=== PATIENT | female | born 1995 | race Two or more races ===

== ENCOUNTER 2017-01-26 20:45 | Emergency (ER) | payer SELFPAY ==
[~2017-01-26] VITALS: Ht 157.5 cm; Wt 41.3 kg
[2017-01-26 22:13] LABS: BASOPHILS % (AUTO) 1.2 % (0.0-2.0); EOSINOPHILS % (AUTO) 1.4 % (0.0-3.0); LYMPHOCYTES % (AUTO) 34.9 % (20.0-45.0); MEAN CORPUSCULAR HEMOGLOBIN 31.2 PG (27.0-31.0); MEAN CORPUSCULAR HGB CONC 33.4 G/DL (32.0-36.0); MEAN CORPUSCULAR VOLUME 93 FL (80-99); MEAN PLATELET VOLUME 7.7 FL (6.5-10.1); NEUTROPHILS % (AUTO) 56.6 % (45.0-75.0); PLATELET COUNT 251 K/UL (150-450); RED BLOOD COUNT 4.61 M/UL (4.20-5.40); RED CELL DISTRIBUTION WIDTH 11.9 % (11.6-14.8); WHITE BLOOD COUNT 7.2 K/UL (4.8-10.8)
[2017-01-26 22:16] LABS: APPEARANCE,URINE CLOUDY; KETONES,URINE 4+ (NEGATIVE); LEUKOCYTE ESTERASE ,URINE 2+ (NEGATIVE); NITRITE,URINE POSITIVE (NEGATIVE); PH,URINE 5 (4.5-8.0); PROTEIN,URINE 3+ (NEGATIVE); UROBILINOGEN,URINE NORMAL MG/DL (0.0-1.0)
[2017-01-26 22:22] LABS: RBC,URINE TNTC /HPF (0 - 2); SQUAMOUS EPITHELIAL CELL,UR FEW /LPF (NONE/OCC); WBC,URINE 0-2 /HPF (0 - 2)
[2017-01-26 22:23] LABS: BACTERIA,URINE MODERATE /HPF
[2017-01-26 22:42] LABS: ALANINE AMINOTRANSFERASE 9 U/L (3-33); ALBUMIN/GLOBULIN RATIO 1.5 (1.0-2.7); ANION GAP 19 (5-15); ASPARTATE AMINO TRANSFERASE 18 U/L (5-40); CALCIUM 9.4 mg/dL (8.6-10.2); CARBON DIOXIDE 24 mEQ/L (20-30); CHLORIDE 97 mEQ/L (98-107); CREATININE 0.6 mg/dL (0.5-0.9); GLOMERULAR FILTRATION RATE > 60 mL/min (>60); HEMOLYSIS 6; LIPASE 26 U/L (< 60); POTASSIUM 3.4 mEQ/L (3.4-4.9); SODIUM 140 mEQ/L (135-145); TOTAL PROTEIN 8.1 g/dL (6.6-8.7)
[2017-01-26] MEDS ORDERED: ZOFRAN4 MG ORAL (22:55)
[2017-01-26] MEDS ORDERED: KEFLEX500 MG ORAL (22:55)
--- NOTE | 2017-01-26 22:56 | Emergency Room Report ---
History of Present Illness General Chief Complaint: Vomiting Source: Patient Present Illness HPI Is a 21-year-old female with no past medical history patient presents with chief complaint of nausea vomiting. Onset for last 2 days. No diarrhea. Mutual weak. Denies any fever or chills. Denies any trauma. Said that she's not . No urinary complaint. Allergies: Coded Allergies: TRAMADOL (Verified Allergy, Unknown, 01/26/17) Patient History Past Medical History: none, see triage record, old chart reviewed Past Surgical History: none Pertinent Family History: none Social History: Denies: smoking Last Menstrual Period: 01/25/17 Now: No Immunizations: other Reviewed Nursing Documentation: PMH: Agreed, PSxH: Agreed Nursing Documentation-PMH Past Medical History: No History, Except For Hx Seizures: Yes Review of Systems Eye: Denies: blurred vision, eye pain ENT: Denies: ear pain, nose congestion, throat swelling Respiratory: Denies: cough, shortness of breath Cardiovascular: Denies: chest pain, palpitations Gastrointestinal: Reports: nausea, vomiting, Denies: abdominal pain, diarrhea Musculoskeletal: Denies: back pain, joint pain Skin: Denies: rash Neurological: Denies: headache, numbness Endocrine: Denies: increased thirst, increased urine Hematologic/Lymphatic: Denies: easy bruising All Other Systems: negative except mentioned in HPI Physical Exam Vital Signs Date Time Temp Pulse Resp B/P Pulse Ox O2 Delivery O2 Flow Rate FiO2 01/26/17 21:05 97.7 91 16 131/88 100 Room Air vitals normal Sp02 EP Interpretation: reviewed, normal General Appearance: well appearing, no apparent distress, alert Head: normocephalic, atraumatic Eyes: bilateral eye EOMI, bilateral eye PERRL ENT: hearing grossly normal, normal pharynx Neck: full range of motion, supple, no meningismus Respiratory: chest non-tender, lungs clear, normal breath sounds Cardiovascular #1: regular rate, rhythm, no murmur Gastrointestinal: normal bowel sounds, non tender, no mass, no organomegaly, no bruit, non-distended Musculoskeletal: back normal, gait/station normal, normal range of motion Psychiatric: mood/affect normal Skin: warm/dry Medical Decision Making Diagnostic Impression: Primary Impression: Vomiting Qualified Codes: R11.2 - Nausea with vomiting, unspecified Additional Impression: UTI (urinary tract infection) Qualified Codes: N30.00 - Acute cystitis without hematuria ER Course Patient with nausea vomiting. Most likely viral gastroenteritis. No evidence of obstruction. No evidence of acute abdomen. She is asymptomatic now. We'll put on antibiotics for UTI. No evidence of sepsis, pyelonephritis. Lab Results Impression labs unremarkable Last Vital Signs Date Time Temp Pulse Resp B/P Pulse Ox O2 Delivery O2 Flow Rate FiO2 01/26/17 21:05 97.7 91 16 131/88 100 Room Air Status: improved Disposition: HOME, SELF-CARE Condition: Stable Scripts Ondansetron (Zofran) 4 Mg Tablet 4 MG ORAL Q6H Y for Nausea & Vomiting, #30 TAB 0 Refills Prov: FEI PRESCOTT M.D. 01/26/17 Cephalexin* (KEFLEX*) 500 Mg Capsule 500 MG ORAL TID, #21 CAP 0 Refills Prov: FEI PRESCOTT M.D. 01/26/17 Referrals: NOT CHOSEN IPA/,REFERRING (PCP) Patient Instructions: Nausea and Vomiting, Adult Additional Instructions: Followup with your Dr. in 2-3 days. Return if symptom worsen. FEI PRESCOTT M.D. Jan 26, 2017 22:56
[2017-01-26 23:16] VITALS: BP 103/65
== END 2017-01-26 23:16 | disposition home or self-care (01) ==
LOC: EMR 22:29
DX: R11.2 Nausea with vomiting, unspecified (principal); N30.00 Acute cystitis without hematuria; Z88.8 Allergy status to other drugs, medicaments and biological substances
CPT/HCPCS: 36415; 80053; 81003; 81025; 83690; 85025; 87086; 96360; 96374; 99284; J2405

== ENCOUNTER 2017-02-01 04:25 | Emergency (ER) | payer SELFPAY ==
[~2017-02-01] VITALS: Ht 157.5 cm; Wt 41.3 kg
[~2017-02-01 04:25] MED LIST: KEFLEX500 MG ORAL; ZOFRAN4 MG ORAL
[2017-02-01] MEDS ORDERED: NKM (04:33)
--- NOTE | 2017-02-01 04:44 | Emergency Room Report ---
History of Present Illness General Chief Complaint: Vomiting Source: Patient Present Illness HPI Is a 21-year-old female with no past medical history. She get frequent vomiting. She presents with chief complaint of multiple episode vomiting tonight. Also with headache. Reason she came in because she noticed blood in it. Denies any fever or chills. Better now. No dysuria no frequency. No workup in the past. Been here for the same. Allergies: Coded Allergies: TRAMADOL (Verified Allergy, Unknown, 01/26/17) Patient History Past Medical History: see triage record, old chart reviewed Past Surgical History: none Pertinent Family History: none Social History: Denies: smoking Last Menstrual Period: last week Now: No Immunizations: other Reviewed Nursing Documentation: PMH: Agreed, PSxH: Agreed Nursing Documentation-PMH Hx Seizures: Yes Review of Systems Eye: Denies: blurred vision, eye pain ENT: Denies: ear pain, nose congestion, throat swelling Respiratory: Denies: cough, shortness of breath Cardiovascular: Denies: chest pain, palpitations Gastrointestinal: Reports: nausea, vomiting, Denies: abdominal pain, diarrhea Musculoskeletal: Denies: back pain, joint pain Skin: Denies: rash Neurological: Denies: headache, numbness Endocrine: Denies: increased thirst, increased urine Hematologic/Lymphatic: Denies: easy bruising All Other Systems: negative except mentioned in HPI Physical Exam Vital Signs Date Time Temp Pulse Resp B/P Pulse Ox O2 Delivery O2 Flow Rate FiO2 02/01/17 04:28 97.5 76 18 114/78 100 Room Air vitals normal. Sp02 EP Interpretation: reviewed, normal General Appearance: well appearing, no apparent distress, alert Head: normocephalic, atraumatic Eyes: bilateral eye EOMI, bilateral eye PERRL ENT: hearing grossly normal, normal pharynx Neck: full range of motion, supple, no meningismus Respiratory: chest non-tender, lungs clear, normal breath sounds Cardiovascular #1: regular rate, rhythm, no murmur Gastrointestinal: normal bowel sounds, non tender, no mass, no organomegaly, no bruit, non-distended Musculoskeletal: back normal, gait/station normal, normal range of motion Neurologic: alert, oriented x3 Psychiatric: depressed affect Skin: warm/dry Medical Decision Making Diagnostic Impression: Primary Impression: Vomiting Qualified Codes: R11.2 - Nausea with vomiting, unspecified ER Course Patient presents with recurrent abdominal pain and vomiting. She did have some headache associated with this. Questionable migraine associated Karina pain and vomiting. No evidence of obstruction. No evidence of major bleeding. She denied depression, eating disorder, other psychological issue. May need a GI workup. Lab Results Impression labs normal Last Vital Signs Date Time Temp Pulse Resp B/P Pulse Ox O2 Delivery O2 Flow Rate FiO2 02/01/17 04:28 97.5 76 18 114/78 100 Room Air Status: improved Disposition: HOME, SELF-CARE Condition: Stable Patient Instructions: Nausea and Vomiting, Adult Additional Instructions: followup with your Dr. within 7 days. You may need referral to see a GI specialist for further workup. Return if worse. FEI PRESCOTT M.D. Feb 01, 2017 04:44
[2017-02-01 05:00] VITALS: BP 104/68
[2017-02-01 05:52] LABS: BASOPHILS % (AUTO) 0.9 % (0.0-2.0); EOSINOPHILS % (AUTO) 1.5 % (0.0-3.0); MEAN CORPUSCULAR HEMOGLOBIN 31.3 PG (27.0-31.0); MEAN CORPUSCULAR VOLUME 92 FL (80-99); NEUTROPHILS % (AUTO) 46.6 % (45.0-75.0); PLATELET COUNT 265 K/UL (150-450); RED CELL DISTRIBUTION WIDTH 11.5 % (11.6-14.8); WHITE BLOOD COUNT 6.4 K/UL (4.8-10.8)
[2017-02-01 05:56] LABS: APPEARANCE,URINE CLEAR; KETONES,URINE NEGATIVE (NEGATIVE); LEUKOCYTE ESTERASE ,URINE NEGATIVE (NEGATIVE); NITRITE,URINE NEGATIVE (NEGATIVE); PH,URINE 7 (4.5-8.0); PROTEIN,URINE NEGATIVE (NEGATIVE); UROBILINOGEN,URINE NORMAL MG/DL (0.0-1.0)
[2017-02-01 05:57] LABS: RBC,URINE 0-2 /HPF (0 - 2); SQUAMOUS EPITHELIAL CELL,UR FEW /LPF (NONE/OCC); WBC,URINE 0 /HPF (0 - 2)
[2017-02-01 06:10] LABS: ANION GAP 17 (5-15); CALCIUM 9.6 mg/dL (8.6-10.2); CARBON DIOXIDE 24 mEQ/L (20-30); CHLORIDE 100 mEQ/L (98-107); CREATININE 0.5 mg/dL (0.5-0.9); GLOMERULAR FILTRATION RATE > 60 mL/min (>60); HEMOLYSIS 22; POTASSIUM 3.8 mEQ/L (3.4-4.9); SODIUM 141 mEQ/L (135-145)
[2017-02-01 06:16] VITALS: BP 103/67
[2017-02-01 06:27] VITALS: BP 103/67
== END 2017-02-01 06:29 | disposition home or self-care (01) ==
LOC: EMR 04:45
DX: R11.2 Nausea with vomiting, unspecified (principal); R51 Headache
CPT/HCPCS: 36415; 80048; 81001; 81025; 85025; 96374; 99284; J2405

== ENCOUNTER 2017-06-29 22:44 | Emergency (ER) | payer OTHER ==
[~2017-06-29] VITALS: Ht 157.5 cm; Wt 42.6 kg
[~2017-06-29 22:44] MED LIST changes: +NKM
[2017-06-29 23:36] VITALS: BP 117/75
--- NOTE | 2017-06-30 | Emergency Room Report ---
History of Present Illness General Chief Complaint: Female Urogenital Problems Source: Patient, Medical Record Present Illness HPI Patient present with complaints of evidence of blood in her urine Today the patient had noticed a small amount of blood It appears to have improved Patient has some associated discomfort in the suprapubic area this was followed by Nausea Similar episode happened again today And with this the patient presents to the ER Denies any fevers or chills denies any flank pain patient is sexually active Reports that she had a recent menstrual cycle Allergies: Coded Allergies: TRAMADOL (Verified Allergy, Unknown, 01/26/17) Patient History Past Medical History: see triage record Pertinent Family History: none Last Menstrual Period: 06/19/17 Now: No : 0 Para: 0 Reviewed Nursing Documentation: PMH: Agreed, PSxH: Agreed Nursing Documentation-PMH Hx Seizures: Yes Review of Systems All Other Systems: negative except mentioned in HPI Physical Exam Vital Signs Date Time Temp Pulse Resp B/P Pulse Ox O2 Delivery O2 Flow Rate FiO2 06/29/17 23:28 98.2 79 14 117/75 100 Room Air Sp02 EP Interpretation: reviewed, normal General Appearance: well appearing, no apparent distress Head: normocephalic, atraumatic Eyes: bilateral eye EOMI, bilateral eye PERRL ENT: hearing grossly normal, normal pharynx, TMs + canals normal, uvula midline Neck: full range of motion, supple, no meningismus, no bony tend Respiratory: lungs clear, normal breath sounds, no rhonchi, no respiratory distress, no retraction, no accessory muscle use Cardiovascular #1: normal peripheral pulses, regular rate, rhythm, no edema, no gallop, no JVD, no murmur Gastrointestinal: normal bowel sounds, non tender, soft, no mass, no organomegaly, non-distended, no guarding, no hernia, no pulsatile mass, no rebound Genitourinary: no CVA tenderness Musculoskeletal: normal inspection Neurologic: oriented x3, responsive, machine pecan picker III-XII nml as tested, motor strength/ tone normal, sensory intact Psychiatric: mood/affect normal Skin: normal color, no rash, warm/dry, palpation normal Lymphatic: normal inspection, no adenopathy Medical Decision Making Diagnostic Impression: Primary Impression: UTI (urinary tract infection) ER Course With the patient's history and examination, multiple differentials considered, including but not limited to , ectopic , ovarian torsion, gastritis, cholecystitis, pancreatitis, appendicitis Patient however has a fairly benign abdominal examination urine sample does show small amount of infection patient will be treated for possible hemorrhagic cystitis And return with any changes Labs Test 06/29/17 23:50 Urine Color Pale yellow Urine Appearance Clear Urine pH 6 (4.5-8.0) Urine Specific [place] 1.010 (1.005-1.035) Urine Protein 1+ (NEGATIVE) Urine Glucose (UA) Negative (NEGATIVE) Urine Ketones 1+ (NEGATIVE) Urine Occult Blood 1+ (NEGATIVE) Urine Nitrite Negative (NEGATIVE) Urine Bilirubin Negative (NEGATIVE) Urine Urobilinogen Normal MG/DL (0.0-1.0) Urine Leukocyte Esterase 2+ (NEGATIVE) Urine RBC 2-4 /HPF (0 - 2) Urine WBC 2-4 /HPF (0 - 2) Urine Squamous Epithelial Cells Few /LPF (NONE/OCC) Urine Bacteria Few /HPF (NONE) Urine HCG, Qualitative Negative Last Vital Signs Date Time Temp Pulse Resp B/P Pulse Ox O2 Delivery O2 Flow Rate FiO2 06/29/17 23:36 98.2 79 14 117/75 100 Room Air Status: improved Disposition: HOME, SELF-CARE Condition: Stable Scripts Nitrofurantoin Monohyd/M-Cryst* (MACROBID 100 MG*) 100 Mg Capsule 100 MG ORAL EVERY 12 HOURS for 5 Days, CAP Prov: RIAN YEPEZ D.O. 06/30/17 Additional Instructions: Patient is provided with the discharge instructions notified to follow up with primary doctor in the next 2-3 days otherwise return to the er with any worsening symptoms. Please note that this report is being documented using [employer] technology. This can lead to erroneous entry secondary to incorrect interpretation by the dictating instrument. RIAN YEPEZ D.O. Jun 30, 2017 00:00
[2017-06-30 00:11] LABS: APPEARANCE,URINE CLEAR; KETONES,URINE 1+ (NEGATIVE); LEUKOCYTE ESTERASE ,URINE 2+ (NEGATIVE); NITRITE,URINE NEGATIVE (NEGATIVE); PH,URINE 6 (4.5-8.0); PROTEIN,URINE 1+ (NEGATIVE); UROBILINOGEN,URINE NORMAL MG/DL (0.0-1.0)
[2017-06-30 00:30] LABS: BACTERIA,URINE FEW /HPF; SQUAMOUS EPITHELIAL CELL,UR FEW /LPF (NONE/OCC)
[2017-06-30] MEDS ORDERED: NITROFURANTOIN100 M2 ORAL (00:44)
[2017-06-30 01:30] VITALS: BP 1/1
== END 2017-06-30 00:53 | disposition home or self-care (01) ==
LOC: EMR 23:12
DX: N39.0 Urinary tract infection, site not specified (principal); Z88.6 Allergy status to analgesic agent
CPT/HCPCS: 81003; 81025; 99283

== ENCOUNTER 2017-10-31 15:13 | Emergency (ER) | payer OTHER ==
[~2017-10-31] VITALS: Ht 157.5 cm; Wt 44.0 kg
[~2017-10-31 15:13] MED LIST changes: +NITROFURANTOIN100 M2 ORAL
[2017-10-31] MEDS ORDERED: NKM (15:36)
[2017-10-31 16:21] LABS: APPEARANCE,URINE CLEAR; KETONES,URINE NEGATIVE (NEGATIVE); LEUKOCYTE ESTERASE ,URINE 1+ (NEGATIVE); NITRITE,URINE NEGATIVE (NEGATIVE); PH,URINE 5 (4.5-8.0); PROTEIN,URINE NEGATIVE (NEGATIVE); UROBILINOGEN,URINE NORMAL MG/DL (0.0-1.0)
[2017-10-31] MEDS ORDERED: Cyclobenzaprine 10mg Tab ORAL ONE (16:30)
[2017-10-31] MEDS ORDERED: Ketorolac 30mg Inj IM ONE (16:30)
[2017-10-31 16:36] LABS: BACTERIA,URINE FEW /HPF; RBC,URINE 0-2 /HPF (0 - 2); SQUAMOUS EPITHELIAL CELL,UR FEW /LPF (NONE/OCC)
[2017-10-31] MEDS ORDERED: IBUPROFEN600 MG ORAL (16:40)
[2017-10-31] MEDS ORDERED: ROBAXIN-750750 MG PO (16:40)
[2017-10-31 16:49] VITALS: BP 106/74
--- NOTE | 2017-10-31 21:27 | Emergency Room Report ---
History of Present Illness General Chief Complaint: Lower Back Pain or Injury Source: Patient Present Illness HPI The patient is a 22-year-old female presenting for back pain. 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 She then felt pain at the mid lower back. She continued to work. She states that the pain has now progressed and is an 8/10 dull ache. Does not radiate. Worse with movement. She has not tried any medications. She denies previous injury to the back. She denies any other symptoms including nausea, vomiting, fever, chills, abdominal pain, dysuria, numbness or tingling, incontinence Allergies: Coded Allergies: TRAMADOL (Verified Allergy, Unknown, 01/26/17) Patient History Past Medical History: see triage record Pertinent Family History: none Now: No Reviewed Nursing Documentation: PMH: Agreed, PSxH: Agreed Nursing Documentation-PMH Past Medical History: No History, Except For Hx Seizures: Yes Review of Systems All Other Systems: negative except mentioned in HPI Physical Exam Vital Signs Date Time Temp Pulse Resp B/P (MAP) Pulse Ox O2 Delivery O2 Flow Rate FiO2 10/31/17 15:32 97.7 86 17 112/79 98 Room Air Sp02 EP Interpretation: reviewed, normal General Appearance: no apparent distress, alert, GCS 15, non-toxic Head: normocephalic, atraumatic Eyes: bilateral eye normal inspection, bilateral eye PERRL ENT: hearing grossly normal, normal pharynx, no angioedema, normal voice Musculoskeletal: normal inspection, normal range of motion, tender - bilat lumbar paraspinal muscles Neurologic: alert, oriented x3, responsive, motor strength/tone normal, sensory intact, speech normal Psychiatric: judgement/insight normal, memory normal, mood/affect normal, no suicidal/homicidal ideation Skin: normal color, no rash, warm/dry, well hydrated Medical Decision Making PA Attestation Dr. De Paz is my supervising physician. Patient management was discussed with my supervising physician Diagnostic Impression: Primary Impression: Muscle strain ER Course The patient is a 22-year-old female presenting for back pain. Ddx considered include but not limited to lumbar strain, degenerative disease, UTI, epidural abscess, cauda equina syndrome, chronic pain PE: NAD There is tenderness to palpation over bilateral lumbar paraspinal muscles. No midline tenderness or step-offs. Active range of motion is intact Normal gait Urinalysis unremarkable The patient will be discharged home with prescription for Motrin and Robaxin. She will followup with her primary doctor and workers compensation. ER precautions are given Laboratory Tests Test 10/31/17 16:00 Urine Color Pale yellow Urine Appearance Clear Urine pH 5 (4.5-8.0) Urine Specific [place] 1.015 (1.005-1.035) Urine Protein Negative (NEGATIVE) Urine Glucose (UA) Negative (NEGATIVE) Urine Ketones Negative (NEGATIVE) Urine Occult Blood 4+ (NEGATIVE) H Urine Nitrite Negative (NEGATIVE) Urine Bilirubin Negative (NEGATIVE) Urine Urobilinogen Normal MG/DL (0.0-1.0) Urine Leukocyte Esterase 1+ (NEGATIVE) H Urine RBC 0-2 /HPF (0 - 2) Urine WBC 2-4 /HPF (0 - 2) Urine Squamous Epithelial Cells Few /LPF (NONE/OCC) Urine Bacteria Few /HPF (NONE) Urine HCG, Qualitative Negative Lab Results Impression unremarkable Last Vital Signs Date Time Temp Pulse Resp B/P (MAP) Pulse Ox O2 Delivery O2 Flow Rate FiO2 10/31/17 16:49 98.2 72 17 106/74 99 Room Air Status: improved Disposition: HOME, SELF-CARE Condition: Improved Scripts Methocarbamol* (ROBAXIN-750*) 750 Mg Tablet 750 MG PO TID, #21 TAB 0 Refills Prov: JOSH GOSS P.A. 10/31/17 Ibuprofen* (MOTRIN*) 600 Mg Tablet 600 MG ORAL Q8H Y for For Pain, #30 TAB 0 Refills Prov: JOSH GOSS P.A. 10/31/17 Patient Instructions: Back Pain, Adult, Muscle Strain Additional Instructions: I discussed my findings with the patient. All questions and concerns have been answered. Treatment and medication compliance have been addressed. I advised the patient that they need to follow up with PMD in 3-5 days. Return to ED if symptoms worsen, new symptoms arise, or if needed for any reason. Patient verbalized understanding of discharge instructions. JOSH GOSS Oct 31, 2017 21:27
[2017-11-08] MEDS ORDERED: METRONIDAZOLE500 MG ORAL (17:34)
== END 2017-10-31 16:50 | disposition home or self-care (01) ==
LOC: EMR 15:40
DX: S39.012A Strain of muscle, fascia and tendon of lower back, initial encounter (principal); Z88.6 Allergy status to analgesic agent; X50.9XXA Other and unspecified overexertion or strenuous movements or postures, initial encounter; Y92.512 Supermarket, store or market as the place of occurrence of the external cause; Y99.0 Civilian activity done for income or pay
CPT/HCPCS: 81003; 81025; 96372; 99283; J1885

== ENCOUNTER → 2017-11-08 | Emergency (ER) | payer OTHER ==
[~2017-11-08] VITALS: Ht 157.5 cm; Wt 44.9 kg
[~2017-11-08] MED LIST changes: +IBUPROFEN600 MG ORAL; +METRONIDAZOLE500 MG ORAL; +ROBAXIN-750750 MG PO
[2017-11-08 16:30] VITALS: BP 107/69
[2017-11-08 17:16] LABS: APPEARANCE,URINE CLEAR; BILIRUBIN, URINE NEGATIVE (NEGATIVE); COLOR,URINE PALE YELLOW; GLUCOSE, URINE (UA) NEGATIVE (NEGATIVE); KETONES,URINE NEGATIVE (NEGATIVE); LEUKOCYTE ESTERASE ,URINE 2+ (NEGATIVE); NITRITE,URINE NEGATIVE (NEGATIVE); PH,URINE 5 (4.5-8.0); PROTEIN,URINE NEGATIVE (NEGATIVE); UROBILINOGEN,URINE NORMAL MG/DL (0.0-1.0)
--- NOTE | 2017-11-08 22:03 | Emergency Room Report ---
History of Present Illness General Chief Complaint: Female Urogenital Problems Source: Patient, Medical Record Present Illness HPI The patient is a 22-year-old female presenting for vaginal itching and swelling for the past 3 days. She states that this began after intercourse. She denies any pain. She denies any vaginal discharge, dysuria, hematuria, back pain, fever, chills Allergies: Coded Allergies: TRAMADOL (Verified Allergy, Unknown, 01/26/17) Patient History Past Medical History: see triage record Pertinent Family History: none Last Menstrual Period: 10/30/17 Reviewed Nursing Documentation: PMH: Agreed, PSxH: Agreed Nursing Documentation-PMH Past Medical History: No History, Except For Hx Seizures: Yes Review of Systems All Other Systems: negative except mentioned in HPI Physical Exam Vital Signs Date Time Temp Pulse Resp B/P (MAP) Pulse Ox O2 Delivery O2 Flow Rate FiO2 11/08/17 16:30 97.9 84 18 107/69 98 Room Air Sp02 EP Interpretation: reviewed, normal General Appearance: no apparent distress, alert, GCS 15, non-toxic Head: normocephalic, atraumatic Eyes: bilateral eye normal inspection, bilateral eye PERRL ENT: hearing grossly normal, normal pharynx, no angioedema, normal voice Gastrointestinal: normal bowel sounds, non tender, soft, non-distended, no guarding, no rebound Genitourinary: normal inspection, no CVA tenderness Neurologic: alert, oriented x3, responsive, motor strength/tone normal, sensory intact, speech normal Psychiatric: judgement/insight normal, memory normal, mood/affect normal, no suicidal/homicidal ideation Skin: normal color, no rash, warm/dry, well hydrated Medical Decision Making PA Attestation Dr. Vang is my supervising physician. Patient management was discussed with my supervising physician Diagnostic Impression: Primary Impression: Vaginitis Qualified Codes: N76.0 - Acute vaginitis ER Course The patient is a 22-year-old female presenting for vaginal itching and swelling for the past 3 days. Differential diagnosis considered but not limited to: UTI, vaginitis, pyelonephritis, pyelonephrosis, PID, ectopic PE: Vitals WNL. NAD. Abdomen: Normal appearance. Non distended. No ecchymosis. Normal BS. Non TTP. No McBurney point tenderness. No guarding. No CVA tenderness UA unremarkable. Neg preg Pt will be AK'ed home with prescription for flagyl and will FU with PMD. ER precautions given Laboratory Tests Test 11/08/17 16:34 Urine Color Pale yellow Urine Appearance Clear Urine pH 5 (4.5-8.0) Urine Specific [place] 1.010 (1.005-1.035) Urine Protein Negative (NEGATIVE) Urine Glucose (UA) Negative (NEGATIVE) Urine Ketones Negative (NEGATIVE) Urine Occult Blood Negative (NEGATIVE) Urine Nitrite Negative (NEGATIVE) Urine Bilirubin Negative (NEGATIVE) Urine Urobilinogen Normal MG/DL (0.0-1.0) Urine Leukocyte Esterase 2+ (NEGATIVE) H Urine RBC 0-2 /HPF (0 - 2) Urine WBC 2-4 /HPF (0 - 2) Urine Squamous Epithelial Cells Few /LPF (NONE/OCC) Urine Bacteria Few /HPF (NONE) Urine HCG, Qualitative Negative Lab Results Impression No signs of infection Last Vital Signs Date Time Temp Pulse Resp B/P (MAP) Pulse Ox O2 Delivery O2 Flow Rate FiO2 11/08/17 16:30 97.9 84 18 107/69 98 Room Air Status: improved Disposition: HOME, SELF-CARE Condition: Improved Scripts Metronidazole* (FLAGYL*) 500 Mg Tablet 500 MG ORAL BID, #14 TAB 0 Refills Prov: JOSH GOSS 11/08/17 Patient Instructions: Vaginitis Additional Instructions: I discussed my findings with the patient. All questions and concerns have been answered. Treatment and medication compliance have been addressed. I advised the patient that they need to follow up with PMD in 3-5 days. Return to ED if symptoms worsen, new symptoms arise, or if needed for any reason. Patient verbalized understanding of discharge instructions. JOSH GOSS Nov 08, 2017 22:03
== END | disposition home or self-care (01) ==
LOC: EMR 17:20
DX: N76.0 Acute vaginitis (principal); R30.9 Painful micturition, unspecified
CPT/HCPCS: 81003; 81025; 99283

== ENCOUNTER 2017-12-26 15:39 | Emergency (ER) | payer OTHER ==
[~2017-12-26] VITALS: Ht 157.5 cm; Wt 45.4 kg
[2017-12-26 16:02] VITALS: BP 107/73
--- NOTE | 2017-12-26 16:08 | Emergency Room Report ---
History of Present Illness General Chief Complaint: Skin Rash/Abscess Source: Patient, Medical Record Present Illness HPI 22YOF with c/o rash to outer right thigh States woke up with rash 2 days ago, ?doesnt know if something bit her Didnt see insect Saw PMD this morning, got Rx prescribed, not sure which Abx, didnt take yet Came to ED now becase "doctor told me to go to ER if it got bigger." Denies fever/chills No DM or previous abscess history Doesnt shave to area Allergies: Coded Allergies: TRAMADOL (Verified Allergy, Unknown, 01/26/17) Patient History Past Medical History: none Past Surgical History: none Pertinent Family History: none Social History: Denies: smoking, alcohol use, drug use Last Menstrual Period: 12/02/17 Now: No Immunizations: UTD Reviewed Nursing Documentation: PMH: Agreed, PSxH: Agreed Nursing Documentation-PMH Past Medical History: No History, Except For Hx Seizures: Yes Review of Systems All Other Systems: negative except mentioned in HPI Physical Exam Vital Signs Date Time Temp Pulse Resp B/P (MAP) Pulse Ox O2 Delivery O2 Flow Rate FiO2 12/26/17 15:49 97.4 68 18 107/73 96 Room Air 97.3 Sp02 EP Interpretation: reviewed, normal General Appearance: normal inspection, well appearing, no apparent distress, alert, GCS 15, non-toxic Head: normocephalic, atraumatic Eyes: bilateral eye PERRL, bilateral eye EOMI ENT: normal ENT inspection, hearing grossly normal, normal pharynx, no angioedema, normal voice, TMs + canals normal, uvula midline, moist mucus membranes Neck: normal inspection, full range of motion, supple, thyroid normal, no meningismus, no bony tend Respiratory: normal inspection, lungs clear, normal breath sounds, no rhonchi, no respiratory distress, no retraction, no accessory muscle use, no wheezing, speaking full sentences Cardiovascular #1: regular rate, rhythm, no edema, no JVD, normal capillary refill Gastrointestinal: normal inspection, normal bowel sounds, non tender, soft, no mass, no peritonitis, non-distended, no guarding, no hernia, no pulsatile mass Genitourinary: no CVA tenderness Musculoskeletal: normal inspection, back normal, normal range of motion, no calf tenderness, pelvis stable, Xander's Sign negative Neurologic: normal inspection, alert, oriented x3, responsive, medical technologist blood bank III-XII nml as tested, motor strength/tone normal, cerebellar normal, normal gait, speech normal Psychiatric: normal inspection, judgement/insight normal, mood/affect normal, no suicidal/homicidal ideation, no delusions Skin: other - Right thigh: 5cm circular area of erythema. No fluctuance or induration. No definitive abscess. Lymphatic: normal inspection, no adenopathy Medical Decision Making Diagnostic Impression: Primary Impression: Rash and other nonspecific skin eruption Additional Impression: Cellulitis Qualified Codes: L03.90 - Cellulitis, unspecified ER Course Right thigh cellulitis Patient already has Rx Advised ICE for symptom relief Take ALL Abx Return for worsening, abscess development ER course: Patient has remained stable during ED stay. Disposition: Patient is to be discharged to home. Patient is instructed to follow up with their primary care doctor within 5 days. Strict return precautions discussed with patient such as fever, chills, worsening/severe pain, nausea, vomiting, which may indicate severe illness. Patient verbalizes understanding and agrees with plan. Please note that this Emergency Department Report was dictated using [employer] visual secretary technology software, occasionally this can lead to erroneous entry secondary to interpretation by the dictation equipment Last Vital Signs Date Time Temp Pulse Resp B/P (MAP) Pulse Ox O2 Delivery O2 Flow Rate FiO2 12/26/17 16:02 97.3 69 18 107/73 96 Room Air 97.3 Status: improved Disposition: HOME, SELF-CARE Condition: Improved Patient Instructions: Cellulitis, [id number] Additional Instructions: - Take antibiotics for cellulitis as prescribed - Apply ice to decrease pain/swelling - Return to ER for worsening pain/swelling if no improvement in 5-7 days PAUL DIETRICH M.D. Dec 26, 2017 16:08
[2017-12-26 16:11] VITALS: BP 107/73
== END 2017-12-26 16:15 | disposition home or self-care (01) ==
LOC: EMR 16:00
DX: L03.115 Cellulitis of right lower limb (principal); R21 Rash and other nonspecific skin eruption; Z88.8 Allergy status to other drugs, medicaments and biological substances
CPT/HCPCS: 99282

== ENCOUNTER 2018-05-10 21:57 | Emergency (ER) | payer OTHER ==
[~2018-05-10] VITALS: Ht 157.5 cm; Wt 44.9 kg
[2018-05-10 22:25] VITALS: BP 115/72
[2018-05-10] MEDS ORDERED: Acetaminophen 500mg (ES) tab ORAL ONE (22:30)
[2018-05-10] MEDS ORDERED: TYLENOL EXTRA500 MG ORAL (23:21)
[2018-05-10 23:50] VITALS: BP 115/72
--- NOTE | 2018-05-11 00:52 | Emergency Room Report ---
History of Present Illness General Chief Complaint: Pain Source: Patient Present Illness HPI 22-year-old female presents ED complaining of right foot pain. States that yesterday afternoon she rolled her foot while walking. Notes pain to her foot. 8 out of 10, throbbing, nonradiating. Denies any ankle pain. Denies any other injury. Notes pain while walking. No other aggravating or relieving factors. Denies any other associated symptoms Allergies: Coded Allergies: TRAMADOL (Verified Allergy, Unknown, 01/26/17) Patient History Past Medical History: seizures Past Surgical History: none Pertinent Family History: none Social History: Denies: smoking, alcohol use, drug use Last Menstrual Period: 04/10/18 Now: No : 0 Para: 0 Immunizations: UTD Reviewed Nursing Documentation: PMH: Agreed; PSxH: Agreed Nursing Documentation-PMH Past Medical History: No History, Except For Hx Seizures: Yes Review of Systems All Other Systems: negative except mentioned in HPI Physical Exam Vital Signs Date Time Temp Pulse Resp B/P (MAP) Pulse Ox O2 Delivery O2 Flow Rate FiO2 05/10/18 22:01 98.3 89 16 112/77 100 Room Air 98.2 Sp02 EP Interpretation: reviewed, normal General Appearance: no apparent distress, alert, GCS 15, non-toxic Head: normocephalic Eyes: bilateral eye normal inspection, bilateral eye PERRL ENT: normal ENT inspection Neck: normal inspection Respiratory: normal inspection Cardiovascular #1: normal inspection Gastrointestinal: normal inspection Rectal: deferred Genitourinary: no CVA tenderness Musculoskeletal: tender - R foot Neurologic: alert, oriented x3, responsive, motor strength/tone normal, sensory intact, speech normal Psychiatric: normal inspection Skin: normal inspection Lymphatic: normal inspection Procedures Splinting Splinting : Consent: Verbal Pre-Made Type: NUBIA wrap - R foot Pre-Proc Neuro Vasc Exam: normal Post-Proc Neuro Vasc Exam: normal Patient Tolerated: Well Complications: None Medical Decision Making Diagnostic Impression: Primary Impression: Foot sprain Qualified Codes: S93.601A - Unspecified sprain of right foot, initial encounter ER Course Hospital Course 22-year-old F presents to ED complaining of R foot pain s/p rolling her foot Differential diagnoses include: Fracture, dislocation, sprain, contusion Clinical course Patient placed on stretcher. After initial history and physical, I ordered pain medications and Xrays of R foot Xrays prelim read shows no acute fracture/dislocation. placed in nubia wrap, given crutches Diagnosis - foot sprain Stable and discharged to home with prescription for Tylenol. apply ice, keep elevated. weight bear as tolerated. Followup with PMD. Return to ED if symptoms recur or worsen Other X-Ray Diagnostic Results Other X-Ray Diagnostic Results : X-Ray ordered: R foot # of Views/Limited Vs Complete: 3 View Indication: Pain EP Interpretation: Yes Interpretation: no dislocation, no soft tissue swelling, no fractures Impression: No acute disease Electronically Signed by: Electronically signed by Yo Vang MD Last Vital Signs Date Time Temp Pulse Resp B/P (MAP) Pulse Ox O2 Delivery O2 Flow Rate FiO2 05/10/18 23:50 98.3 66 15 115/72 99 Room Air 208.9 Status: improved Disposition: HOME, SELF-CARE Condition: Stable Scripts Acetaminophen* (TYLENOL EXTRA STRENGTH*) 500 Mg Tablet 500 MG ORAL Q8H PRN for Prn Headache/Temp > 101, #30 TAB 0 Refills Prov: Yo Vang MD 05/10/18 Departure Forms: Return to Work Return to Work Date: May 12, 2018 Work Restrictions: Desk Work Only Patient Instructions: Foot Sprain Yo Vang MD May 11, 2018 00:52
--- NOTE | 2018-05-11 11:43 | Diagnostic Imaging Report ---
Indication: Pain Comparison: None Findings: 3 views of the right foot were obtained. No acute fractures, malalignment, erosions or periostitis are identified. Soft tissues are unremarkable. Impression: No acute findings.
== END 2018-05-10 23:50 | disposition home or self-care (01) ==
LOC: EMR 22:16
DX: S93.601A Unspecified sprain of right foot, initial encounter (principal); X50.1XXA Overexertion from prolonged static or awkward postures, initial encounter; Y93.01 Activity, walking, marching and hiking; Y92.9 Unspecified place or not applicable
CPT/HCPCS: 99283

== ENCOUNTER 2019-06-24 09:24 | Emergency (ER) | payer OTHER ==
[~2019-06-24] VITALS: Ht 157.5 cm; Wt 50.8 kg
[~2019-06-24 09:24] MED LIST changes: +ONDANSETRON ODT4 MG BC; +RANITIDINE HCL150 MG ORAL; +TYLENOL EXTRA500 MG ORAL
--- NOTE | 2019-06-24 09:28 | NUR ---
ED Nurse Note: Patient walked in to ER due to left lower back pain. Patient stated that she is experiencing burning urination and urinary urgency. alert and oriented x4, verbally responsive. Afebrile.
[2019-06-24] MEDS ORDERED: Metoclopramide 10mg/2ml Inj IVP ONE (09:45)
--- NOTE | 2019-06-24 09:48 | Emergency Room Report ---
History of Present Illness General Chief Complaint: General Complaint Source: Patient Present Illness HPI Disclaimer: Please note that this report is being documented using [employer] technology. This can lead to erroneous entry secondary to incorrect interpretation by the dictating instrument. HPI: 23-year-old female with no medical history presents for evaluation of abdominal pain, vomiting, lightheadedness and back pain. Patient states that she was in her usual state of health until a few days ago when she began to feel urinary frequency, urgency and 1 day of dysuria. She noted hematuria on the first day but this is now cleared. After this, she began to feel pain over the right lower back off midline that exacerbated by bending and twisting motion. She cannot recall a specific back injury and has had no history of chronic back pain. 2 days ago she began to experience nausea and vomiting. Denies diarrhea. She is able to drink water but otherwise cannot tolerate any solids or even thickened liquids. She has been using Zofran ODT's at home from a prior hospital visit without significant improvement. She denies fevers. She notes headaches and lightheadedness particularly with standing. There is been no loss of consciousness or head injury. She denies any chest pain, palpitations, shortness of breath, cough, rash, diarrhea. LMP end of April, she is sexually active does not use contraception. Denies vaginal bleeding or vaginal discharge. She typically has irregular periods. PMH: None PSH: None Allergies: Tramadol listed in medical chart Social Hx: Occasional alcohol use. Denies drug or tobacco use Allergies: Coded Allergies: TRAMADOL (Verified Allergy, Unknown, 01/26/17) Patient History Last Menstrual Period: 04/2019 Now: No Nursing Documentation-PMH Past Medical History: No History, Except For Hx Seizures: Yes - Last one in 2009 Review of Systems All Other Systems: negative except mentioned in HPI Physical Exam Vital Signs Date Time Temp Pulse Resp B/P (MAP) Pulse Ox O2 Delivery O2 Flow Rate FiO2 06/24/19 09:28 98.4 78 20 115/76 (89) 97 Room Air General: Awake and alert, no acute distress HEENT: NC/AT. EOMI. Cardiovascular: RRR. S1 and S2 normal. No murmur appreciated Resp: Normal work of breathing. No cough, wheezing or crackles appreciated Abdomen: Abdomen is soft, nondistended. Mild tenderness over the suprapubic region and little bit over the lower quadrants bilaterally. There are no masses appreciated. There is no rebound tenderness, no Faulkner's point tenderness. Skin: Intact. No abrasions, laceration or rash over the exposed skin MSK: Normal tone and bulk. Moving all extremities. No obvious deformity. Neuro: Awake and alert. Mentating appropriately. Back/Spine: There is some tenderness just superior to the right gluteus but no midline or paraspinal tenderness, no step-off, no deformity. Mild CVA tenderness on the right. Negative on the left. Medical Decision Making ER Course 23-year-old female presents for 2 days vomiting and several days dysuria, hematuria, urgency and frequency. Differential includes but is not limited to dehydration, orthostatic hypotension, urinary tract infection, pyelonephritis, nephrolithiasis, appendicitis, ectopic . We will start broad work-up, IV fluids, antiemetics. Depending on labs and patient symptoms can advance work -up as needed. At this time, it seems that urinary tract infection will be the most likely with a possible early pyelonephritis. She has no history or family history of nephrolithiasis and her abdominal pain was more in the suprapubic region rather than the classic presentation for appendicitis however will have low threshold to advance work-up as needed. Laboratory Tests Test 06/24/19 09:16 06/24/19 09:50 Urine Color Pale yellow Urine Appearance Clear Urine pH 7 (4.5-8.0) Urine Specific Ledbetter 1.005 (1.005-1.035) Urine Protein Negative (NEGATIVE) Urine Glucose (UA) Negative (NEGATIVE) Urine Ketones Negative (NEGATIVE) Urine Blood Negative (NEGATIVE) Urine Nitrite Negative (NEGATIVE) Urine Bilirubin Negative (NEGATIVE) Urine Urobilinogen Normal MG/DL (0.0-1.0) Urine Leukocyte Esterase Negative (NEGATIVE) Urine HCG, Qualitative Negative (NEGATIVE) White Blood Count 6.1 K/UL (4.8-10.8) Red Blood Count 4.64 M/UL (4.20-5.40) Hemoglobin 14.4 G/DL (12.0-16.0) Hematocrit 42.6 % (37.0-47.0) Mean Corpuscular Volume 92 FL (80-99) Mean Corpuscular Hemoglobin 31.0 PG (27.0-31.0) Mean Corpuscular Hemoglobin Concent 33.7 G/DL (32.0-36.0) Red Cell Distribution Width 11.1 % (11.6-14.8) L Platelet Count 311 K/UL (150-450) Mean Platelet Volume 6.9 FL (6.5-10.1) Neutrophils (%) (Auto) 63.5 % (45.0-75.0) Lymphocytes (%) (Auto) 25.1 % (20.0-45.0) Monocytes (%) (Auto) 8.1 % (1.0-10.0) Eosinophils (%) (Auto) 2.0 % (0.0-3.0) Basophils (%) (Auto) 1.3 % (0.0-2.0) Sodium Level 136 MMOL/L (136-145) Potassium Level 3.4 MMOL/L (3.5-5.1) L Chloride Level 102 MMOL/L (98-107) Carbon Dioxide Level 26 MMOL/L (21-32) Anion Gap 8 mmol/L (5-15) Blood Urea Nitrogen 8 mg/dL (7-18) Creatinine 0.5 MG/DL (0.55-1.30) L Estimat Glomerular Filtration Rate > 60 mL/min (>60) Glucose Level 93 MG/DL (74-106) Calcium Level 9.2 MG/DL (8.5-10.1) Total Bilirubin 0.6 MG/DL (0.2-1.0) Aspartate Amino Transf (AST/SGOT) 19 U/L (15-37) Alanine Aminotransferase (ALT/SGPT) 13 U/L (12-78) Alkaline Phosphatase 69 U/L (46-116) Total Protein 8.1 G/DL (6.4-8.2) Albumin 3.9 G/DL (3.4-5.0) Globulin 4.2 g/dL Albumin/Globulin Ratio 0.9 (1.0-2.7) L Lipase 98 U/L (73-393) Reevaluation Time: 10:32 Last Vital Signs Date Time Temp Pulse Resp B/P (MAP) Pulse Ox O2 Delivery O2 Flow Rate FiO2 06/24/19 09:35 78 19 Room Air 06/24/19 09:28 98.4 115/76 (89) 97 Status: improved Reevaluation Impression Lab work is returned largely within normal limits. Her nausea and vomiting are now resolved after receiving IV fluids and Reglan. No microscopic blood or evidence of infection on urinalysis. Kidney function normal, WBC within normal limits. Likely, this is a viral illness that should resolve over the next few days. I discussed with patient and mother who was not present at bedside whether or not imaging would be appropriate. At this time, patient and mother have declined further imaging or work-up stating that they would like to go home and try symptomatic care for the next few days monitor for improvement. I have included the names of some clinics in the area as outpatient follow-up. She will have a refill of Zofran to use at home as needed. We discussed reasons to return to the emergency department with patient and family. She understands and agrees with the treatment plan will be discharged home. Disposition: HOME, SELF-CARE Condition: Improved Scripts Ondansetron Odt* (ZOFRAN ODT*) 4 Mg Tab.rapdis 4 MG BC EVERY 6 HOURS PRN for Nausea & Vomiting, #10 TAB 0 Refills Prov: Sabas Hastings MD 06/24/19 Sabas Hastings MD Jun 24, 2019 09:48
[2019-06-24 09:49] LABS: APPEARANCE,URINE CLEAR; BILIRUBIN, URINE NEGATIVE (NEGATIVE); COLOR,URINE PALE YELLOW; GLUCOSE, URINE (UA) NEGATIVE (NEGATIVE); KETONES,URINE NEGATIVE (NEGATIVE); LEUKOCYTE ESTERASE ,URINE NEGATIVE (NEGATIVE); NITRITE,URINE NEGATIVE (NEGATIVE); PH,URINE 7 (4.5-8.0); PROTEIN,URINE NEGATIVE (NEGATIVE); UROBILINOGEN,URINE NORMAL MG/DL (0.0-1.0)
[2019-06-24 10:02] LABS: BASOPHILS % (AUTO) 1.3 % (0.0-2.0); HEMATOCRIT 42.6 % (37.0-47.0); HEMOGLOBIN 14.4 G/DL (12.0-16.0); LYMPHOCYTES % (AUTO) 25.1 % (20.0-45.0); MEAN CORPUSCULAR VOLUME 92 FL (80-99); MONOCYTES % (AUTO) 8.1 % (1.0-10.0); NEUTROPHILS % (AUTO) 63.5 % (45.0-75.0); PLATELET COUNT 311 K/UL (150-450); RED BLOOD COUNT 4.64 M/UL (4.20-5.40); RED CELL DISTRIBUTION WIDTH 11.1 % (11.6-14.8); WHITE BLOOD COUNT 6.1 K/UL (4.8-10.8)
[2019-06-24 10:11] LABS: ANION GAP 8 mmol/L (5-15); BLOOD UREA NITROGEN 8 mg/dL (7-18); CALCIUM 9.2 MG/DL (8.5-10.1); CARBON DIOXIDE 26 MMOL/L (21-32); CHLORIDE 102 MMOL/L (98-107); CREATININE 0.5 MG/DL (0.55-1.30); POTASSIUM 3.4 MMOL/L (3.5-5.1); SODIUM 136 MMOL/L (136-145)
[2019-06-24 10:16] LABS: ALANINE AMINOTRANSFERASE 13 U/L (12-78); ALBUMIN 3.9 G/DL (3.4-5.0); ALBUMIN/GLOBULIN RATIO 0.9 (1.0-2.7); ALKALINE PHOSPHATASE 69 U/L (46-116); ASPARTATE AMINO TRANSFERASE 19 U/L (15-37); BILIRUBIN,TOTAL 0.6 MG/DL (0.2-1.0)
[2019-06-24] MEDS ORDERED: ONDANSETRON ODT4 MG BC (10:31)
--- NOTE | 2019-06-24 10:32 | NUR ---
ED Nurse Note: Pt cleared by ERMD for discharge. DC instructions/prescription was given and explained to pt and verbalized understanding of teachings. All medical deviecs such as ID band and IV line removed. Pt is AAO x4, ambulatory and left with all personal belongings.
[2019-06-24 10:39] VITALS: BP 116/78
== END 2019-06-24 10:32 | disposition home or self-care (01) ==
LOC: EMR 09:47
DX: R11.2 Nausea with vomiting, unspecified (principal); Z88.6 Allergy status to analgesic agent
CPT/HCPCS: 36415; 80053; 81003; 81025; 83690; 85025; 96361; 96374; 99284; J2765

== ENCOUNTER 2019-09-09 20:48 | Emergency (ER) | payer OTHER ==
[~2019-09-09] VITALS: Ht 157.5 cm; Wt 54.4 kg
[2019-09-09 21:42] VITALS: BP 116/74
--- NOTE | 2019-09-09 21:42 | NUR ---
ED Nurse Note: Patient walked in to ER due to headache x 4-5 days, reports n/v and weakness. As per patient she is taking steroids. Has history of syncope and seizure x1 in 2009. Alert and oriented, verbally responsive. Afebrile. No SOB. Breathing even and unlabored. VSS.
--- NOTE | 2019-09-09 21:58 | Emergency Room Report ---
History of Present Illness General Chief Complaint: Headache Source: Patient, Medical Record Present Illness HPI Is a 23-year-old female with no past medical history patient presents with complaint of a headache. Onset for about 5 days now. This occur toward the end of a steroid Dosepak that she was taking for an allergic reaction. Headaches have gone away. Cohi-knt-xwvxesl medicine not helping. Pain is mostly in the right side with ringing in her ear. She felt dizzy when she walks. No fever chills but no nausea no vomiting. No focal deficit. Denies any other complaint. Allergies: Coded Allergies: TRAMADOL (Verified Allergy, Unknown, 01/26/17) Patient History Past Medical History: see triage record, old chart reviewed Past Surgical History: none Pertinent Family History: none Social History: Denies: smoking Last Menstrual Period: pt on her period right now Now: No Immunizations: other Reviewed Nursing Documentation: PMH: Agreed; PSxH: Agreed Nursing Documentation-PM Past Medical History: No History, Except For Hx Seizures: Yes - Last one in 2009 Review of Systems Eye: Denies: eye pain, blurred vision ENT: Denies: ear pain, nose congestion, throat swelling Respiratory: Denies: cough, shortness of breath Cardiovascular: Denies: chest pain, palpitations Gastrointestinal: Denies: abdominal pain, diarrhea, nausea, vomiting Musculoskeletal: Denies: back pain, joint pain Skin: Denies: rash Neurological: Reports: headache; Denies: numbness Endocrine: Denies: increased thirst, increased urine Hematologic/Lymphatic: Denies: easy bruising All Other Systems: negative except mentioned in HPI Physical Exam Vital Signs Date Time Temp Pulse Resp B/P (MAP) Pulse Ox O2 Delivery O2 Flow Rate FiO2 09/09/19 21:40 97.2 77 18 116/74 (88) 98 Room Air Vitals normal Sp02 EP Interpretation: reviewed, normal General Appearance: well appearing, no apparent distress, alert Head: normocephalic, atraumatic Eyes: bilateral eye PERRL, bilateral eye EOMI ENT: hearing grossly normal, normal pharynx Neck: full range of motion, supple, no meningismus Respiratory: chest non-tender, lungs clear, normal breath sounds Cardiovascular #1: regular rate, rhythm, no murmur Gastrointestinal: normal bowel sounds, non tender, no mass, no organomegaly, no bruit, non-distended Musculoskeletal: back normal, gait/station normal, normal range of motion Psychiatric: mood/affect normal Medical Decision Making Diagnostic Impression: Primary Impression: Headache Qualified Codes: R51 - Headache ER Course Patient presents with headache. Radiologist said that there is a small area on the cerebellar that may represent a bleed. He is 9% sure that this is an artifactual finding. Patient has no vomiting. No ataxia. She wants to go home. Told her to come back if she has more symptoms. CT/MRI/US Diagnostic Results CT/MRI/US Diagnostic Results : Imaging Test Ordered: CT head Impression Read by radiologist. 3 x 8 mm focus of hyperdensity in the right cerebellar tonsil. Is favored to be artifactual but cannot definitively exclude hemorrhage. Otherwise negative. Last Vital Signs Date Time Temp Pulse Resp B/P (MAP) Pulse Ox O2 Delivery O2 Flow Rate FiO2 09/09/19 21:42 97.2 80 18 116/74 98 Room Air Status: improved Disposition: HOME, SELF-CARE Condition: Stable Scripts Hydrocodone Bit/Acetaminophen 5-325* (NORCO 5-325*) 1 Each Tablet 1 TAB ORAL Q6H PRN for For Pain, #10 TAB 0 Refills Prov: Geo Ellison MD 09/09/19 Patient Instructions: General Headache Without Cause Additional Instructions: Follow-up with your doctor in a week. Return for increasing headache or having vomiting or feeling unbalanced. Return if worse. Geo Ellison MD Sep 09, 2019 21:58
[2019-09-09] MEDS ORDERED: DiphenhydrAMINE 50mg/ml Inj IVP ONE (22:00)
[2019-09-09] MEDS ORDERED: Metoclopramide 10mg/2ml Inj IVP ONE (22:00)
[2019-09-09] MEDS ORDERED: Ketorolac 30mg Inj IV ONE (22:00)
--- NOTE | 2019-09-09 22:46 | Diagnostic Imaging Report ---
Indications: Headache for 5 days Technique: Spiral acquisitions obtained through the brain. Angled axial and coronal 5 x 5 mm slices were reconstructed. Total dose length product 1369 mGycm. CTDI vol(s) 60 mGy. Dose reduction achieved using automated exposure control Comparison: 10/05/2018 Findings: Questionable focus of high attenuation in the right cerebellar tonsil region, most likely artifactual and most apparently somewhat on the thinner slice images. Also not evident on the coronal reconstructed images. Otherwise, no acute intracranial hemorrhage or edema. No mass effect nor midline shift. Normal rosario-white differentiation. Normal size ventricles and extra-axial CSF spaces. Visualized orbits and sinuses are unremarkable. The calvarium is intact. The mastoids are clear. Impression: No definite acute intracranial bleed or mass effect High attenuation in the right cerebellar tonsil region, most likely artifactual, parenchymal bleed not completely excludable, consider MRI for better characterization if clinically indicated The CT scanner at [facility] is accredited by the [employer] and the scans are performed using protocols designed to limit radiation exposure to as low as reasonably achievable to attain images of sufficient resolution adequate for diagnostic evaluation.
[2019-09-09] MEDS ORDERED: NORCO 5-325 TA1 EACH ORAL (22:54)
[2019-09-09 22:57] VITALS: BP 116/74
--- NOTE | 2019-09-09 22:57 | NUR ---
ED Nurse Note: Pt cleared by ERMD for discharge. DC instructions/prescription was given and explained to pt and verbalized understanding of teachings. All medical deviecs such as ID band and IV line removed. Pt is AAO x4, ambulatory and left with all personal belongings. Accompanied by s/o.
== END 2019-09-09 22:57 | disposition home or self-care (01) ==
LOC: EMR 21:28
DX: R51 Headache (principal); Z88.6 Allergy status to analgesic agent
CPT/HCPCS: 70450; 96361; 96374; 96375; J1200; J1885; J2765; Z7502; 99284; J7030

== ENCOUNTER 2020-02-11 15:53 | Emergency (ER) | payer OTHER ==
[~2020-02-11] VITALS: Ht 157.5 cm; Wt 49.0 kg
[~2020-02-11 15:53] MED LIST changes: +GUAIFENESI100 MG/5 M ORAL; +NORCO 5-325 TA1 EACH ORAL; +OMEPRAZOLE20 M3 ORAL; +ZITHROMAX250 MG ORAL; +ZOFRAN4 M1 ORAL
[2020-02-11 16:06] VITALS: BP 129/93
--- NOTE | 2020-02-11 16:10 | NUR ---
ED Nurse Note: Patient walked in to ER c/o right upper abd pain, N/V/D x 4 days. Patient stated had fever at home 102, took Tylenol. Patient's temp 99.2 at triage. Patient calm, AAO x4, VSS att his time.
--- NOTE | 2020-02-11 16:15 | NUR ---
ED Nurse Note: Pt refused pepcid IV. ERPA notified. Explained risk and benefits, verbally understood.
--- NOTE | 2020-02-11 16:35 | NUR ---
ED Nurse Note: Patient was moved to OB from tent. Pt c/o right upper abdominal pain, nausea, vomiting and diarrhea x4 days. No SOB. Afebrile. VSS.
--- NOTE | 2020-02-11 16:39 | NUR ---
ED Nurse Note: US at bedside by a tech.
[2020-02-11 17:25] LABS: BASOPHILS % (AUTO) 1.2 % (0.0-2.0); EOSINOPHILS % (AUTO) 1.6 % (0.0-3.0); HEMATOCRIT 44.3 % (37.0-47.0); HEMOGLOBIN 14.5 G/DL (12.0-16.0); LYMPHOCYTES % (AUTO) 18.9 % (20.0-45.0); MEAN CORPUSCULAR VOLUME 93 FL (80-99); MONOCYTES % (AUTO) 5.9 % (1.0-10.0); NEUTROPHILS % (AUTO) 72.4 % (45.0-75.0); PLATELET COUNT 323 K/UL (150-450); RED BLOOD COUNT 4.75 M/UL (4.20-5.40); RED CELL DISTRIBUTION WIDTH 12.7 % (11.6-14.8); WHITE BLOOD COUNT 9.6 K/UL (4.8-10.8)
[2020-02-11 17:32] LABS: APPEARANCE,URINE CLEAR; BILIRUBIN, URINE NEGATIVE (NEGATIVE); COLOR,URINE PALE YELLOW; GLUCOSE, URINE (UA) NEGATIVE (NEGATIVE); KETONES,URINE NEGATIVE (NEGATIVE); LEUKOCYTE ESTERASE ,URINE NEGATIVE (NEGATIVE); NITRITE,URINE NEGATIVE (NEGATIVE); PH,URINE 6 (4.5-8.0); PROTEIN,URINE NEGATIVE (NEGATIVE); UROBILINOGEN,URINE NORMAL MG/DL (0.0-1.0)
[2020-02-11 17:41] LABS: INR 0.9 (0.9-1.1)
--- NOTE | 2020-02-11 17:52 | Emergency Room Report ---
History of Present Illness General Chief Complaint: Fever Present Illness HPI 24-year-old female with history of gastritis here complaining of 2 days of fever , nausea vomiting diarrhea, and epigastric and right upper quadrant abdominal pain. Rated 10/10. Denies pain radiation. Denies cough, shortness of breath, congestion. Reports that she has been self isolating at home. Denies any recent travel. Patient reports that she contacted her primary doctor and was told to come to the emergency room as she has history of possible gallstones. Patient sitting comfortably and vitals are within normal limits Allergies: Coded Allergies: TRAMADOL (Verified Allergy, Unknown, 01/26/17) COVID-19 Screening Contact w/high risk pt: No Recent Travel to affected area: No Experienced COVID-19 symptoms?: Yes COVID-19 symptoms experienced: Fever (T>100.4F or >38C) Patient History Past Medical History: see triage record Past Surgical History: none Pertinent Family History: none Last Menstrual Period: 01/29/2020 Now: No Immunizations: UTD Reviewed Nursing Documentation: PMH: Agreed; PSxH: Agreed Nursing Documentation-PMH Hx Seizures: Yes - Last one in 2009 Review of Systems All Other Systems: negative except mentioned in HPI Physical Exam Vital Signs Date Time Temp Pulse Resp B/P (MAP) Pulse Ox O2 Delivery O2 Flow Rate FiO2 02/11/20 15:46 99.0 104 20 129/93 (105) 98 Room Air Sp02 EP Interpretation: reviewed, normal General Appearance: no apparent distress, alert, GCS 15, non-toxic Head: normocephalic, atraumatic Eyes: bilateral eye normal inspection, bilateral eye PERRL ENT: hearing grossly normal, normal pharynx, no angioedema, normal voice Neck: full range of motion, supple/symm/no masses Respiratory: chest non-tender, lungs clear, normal breath sounds, no rhonchi, no accessory muscle use, speaking full sentences Cardiovascular #1: no edema, no murmur Gastrointestinal: non tender, soft, no mass, no organomegaly, no peritonitis, no bruit, non-distended, no guarding Rectal: deferred Genitourinary: no CVA tenderness Musculoskeletal: back normal Neurologic: alert, motor strength/tone normal, oriented x3, sensory intact, responsive, speech normal Psychiatric: judgement/insight normal Skin: no rash Lymphatic: no adenopathy Medical Decision Making PA Attestation All diagnoses and treatment plans were reviewed and discussed with my supervising physician Dr. Mclean Diagnostic Impression: Primary Impression: Abdominal pain Additional Impression: Gastritis ER Course 24-year-old female with history of gastritis here complaining of 2 days of fever , nausea vomiting diarrhea, and epigastric and right upper quadrant abdominal pain. Rated 10/10. Denies pain radiation. Denies cough, shortness of breath, congestion. Reports that she has been self isolating at home. Denies any recent travel. Patient reports that she contacted her primary doctor and was told to come to the emergency room as she has history of possible gallstones. Patient sitting comfortably and vitals are within normal limits Ddx considered but are not limited to: appendicitis, cholecystis, gastritis, gastroenteritis, UTI, pyelonephritis, SBO, diverticulitis, influenza with GI manifestation, TN, complication with Vital signs: are WNL, pt. is afebrile H&PE are most consistent with: gastritis, abdominal pain ORDERS: abd US, CBC, CMP, UA, urine preg, omeprazole, Zofran, Tylenol, dicyclomine ED INTERVENTIONS: NS bolus, Zofran, Pepcid DISCHARGE: At this time pt. is stable for d/c to home. Will provide printed patient care instructions, and any necessary prescriptions. Care plan and follow up instructions have been discussed with the patient prior to discharge. Patient to follow primary care doctor, increase oral hydration, keep a brat diet also avoid spicy acidic foods CT/MRI/US Diagnostic Results CT/MRI/US Diagnostic Results : Imaging Test Ordered: Abdominal US Impression FINDINGS: Liver: Liver 14.5 cm No intrahepatic bile duct dilation. Gallbladder: Gallbladder wall 0.2 cm No gallstones. Common bile duct: CBD 0.2 cm No stones. No dilation. Pancreas: Unremarkable as visualized. Kidneys: Right kidney 10 cm Left kidney 10 cm No stones. No hydronephrosis. Spleen: Spleen 8.3 cm Aorta: Unremarkable. No aneurysm. Inferior vena cava: Unremarkable. IMPRESSION: 1. No acute abnormality definitively identified to account for patient presentation. 2. Unremarkable study. Last Vital Signs Date Time Temp Pulse Resp B/P (MAP) Pulse Ox O2 Delivery O2 Flow Rate FiO2 02/11/20 16:06 104 20 Room Air 02/11/20 16:06 99.0 129/93 98 Disposition: HOME, SELF-CARE Condition: Stable Scripts Acetaminophen* (TYLENOL EXTRA STRENGTH*) 500 Mg Tablet 500 MG ORAL Q8H PRN for Prn Headache/Temp > 101, #30 TAB 0 Refills Prov: Cait Payne 02/11/20 Dicyclomine Hcl* (DICYCLOMINE HCL*) 10 Mg Capsule 10 MG ORAL TID, #10 CAP Prov: Cait Payne 02/11/20 Omeprazole (OMEPRAZOLE) 20 Mg Tablet. 20 MG ORAL DAILY, #30 TAB Prov: Cait Payne 02/11/20 Ondansetron (Zofran) 4 Mg Tablet 4 MG ORAL Q6H PRN for Nausea & Vomiting, #14 TAB Prov: Cait Payne 02/11/20 Patient Instructions: Abdominal Pain, Adult, Fever, Adult Additional Instructions: Follow-up with your primary care provider, take medication as directed, avoid eating greasy food, if worsening symptoms return to the emergency room Take medication as directed, follow-up with your primary doctor, you need to stay home for self quarantine due to Covid 19 precautions for 14 days Cait Payne Feb 11, 2020 17:52
[2020-02-11] MEDS ORDERED: TYLENOL EXTRA500 MG ORAL (17:53)
[2020-02-11] MEDS ORDERED: DICYCLOMINE HCL10 MG ORAL (17:53)
[2020-02-11] MEDS ORDERED: OMEPRAZOLE20 M3 ORAL (17:53)
[2020-02-11] MEDS ORDERED: ZOFRAN4 M1 ORAL (17:53)
--- NOTE | 2020-02-11 17:54 | Diagnostic Imaging Report ---
EXAM: US Abdomen Complete CLINICAL HISTORY: PAIN TECHNIQUE: Real-time ultrasound of the abdomen with image documentation. COMPARISON: No relevant prior studies available. FINDINGS: Liver: Liver 14.5 cm No intrahepatic bile duct dilation. Gallbladder: Gallbladder wall 0.2 cm No gallstones. Common bile duct: CBD 0.2 cm No stones. No dilation. Pancreas: Unremarkable as visualized. Kidneys: Right kidney 10 cm Left kidney 10 cm No stones. No hydronephrosis. Spleen: Spleen 8.3 cm Aorta: Unremarkable. No aneurysm. Inferior vena cava: Unremarkable. IMPRESSION: 1. No acute abnormality definitively identified to account for patient presentation. 2. Unremarkable study.
[2020-02-11 18:11] VITALS: BP 129/93
--- NOTE | 2020-02-11 18:11 | NUR ---
ED Nurse Note: Pt cleared by ERMD for discharge. DC instructions/prescription was given and explained to pt and verbalized understanding of teachings. All medical deviecs such as ID band and IV lineremoved. Pt is AAO x4, ambulatory and left with all personal belongings.
== END 2020-02-11 18:11 | disposition home or self-care (01) ==
LOC: EDBD 15:53 → EMR 17:50
DX: K29.70 Gastritis, unspecified, without bleeding (principal); R11.2 Nausea with vomiting, unspecified; R10.9 Unspecified abdominal pain; Z88.6 Allergy status to analgesic agent; R50.9 Fever, unspecified
CPT/HCPCS: 76700; 81003; 81025; 85025; 85610; 85730; 96361; 96374; J2405; J7030; Z7502; 99284